=== PATIENT | male | born 1940 | race Caucasian/White ===

== ENCOUNTER 2017-08-01 08:28 | Day surgery (SDC) | payer OTHER, BC ==
[2017-08-01] MEDS ORDERED: PROPOFOL 20 ML ONE ×2 (08:44)
[2017-08-01 09:16] VITALS: TEMP 97.4
[2017-08-01] MEDS ORDERED: ePHEDrine SULFATE 50 MG/1 ML AMPULE ONE (10:34)
[2017-08-01 11:30] VITALS: BP 115/72; PULSE 66
[2017-08-01 13:28] VITALS: BMI 27.4
== END 2017-08-01 11:15 | disposition home or self-care (01) ==
LOC: FASU-ENDO 08:28
PROVIDERS: ATTEND Internal Medicine Gastroenterology
PROC: 0DJD8ZZ Inspection of Lower Intestinal Tract, Via Natural or Artificial Opening Endoscopic (ICD-10-PCS; principal; 2017-08-01 10:12)
DX: Z86.010 Personal history of colon polyps (principal); K57.30 Diverticulosis of large intestine without perforation or abscess without bleeding
CPT/HCPCS: 82962